=== PATIENT | female | born 1980 | race African-American/Black ===

== ENCOUNTER 2018-04-01 12:06 | Emergency (ER) | payer SELFPAY ==
[~2018-04-01] VITALS: Ht 165.1 cm; Wt 50.0 kg
[2018-04-01] MEDS ORDERED: KETOROLAC 30MG/ML VIAL IV STA (15:14)
[2018-04-01] MEDS ORDERED: SODIUM CHLORIDE 0.9% 1,000 ML IV ONE (15:14)
[2018-04-01] MEDS ORDERED: DEXAMETHASONE 10 MG/ML VIAL IV ONE (15:15)
[2018-04-01] MEDS ORDERED: METRONIDAZOLE 500 MG PREMIX 100 ML IV ONE (15:15)
[2018-04-01] MEDS ORDERED: CEFTRIAXONE 2 G PREMIX 50 ML IV ONE (15:15)
[2018-04-01 18:13] VITALS: BP 140/92
== END 2018-04-01 19:08 | disposition home or self-care (01) ==
LOC: ER 12:06
DX: J36 Peritonsillar abscess (principal)
CPT/HCPCS: 81025; 96365; 96367; 96375; 99285; J0696; J1100; J1885; J3490; J7030